=== PATIENT | female | born 1975 | race Caucasian/White ===

== ENCOUNTER 2017-08-16 11:10 | Emergency (ER) | payer MEDICARE, MEDICAID, SELFPAY ==
[2017-08-16] VITALS (8 sets, daily range): BP systolic 112–127; BP diastolic 72–80; PULSE 71–103; RESP 14–18; TEMP 36.6; O2SAT 97–98; BMI 31.6
[2017-08-16 11:47] LABS: Absolute Neutrophil Count 7.1 X10^3/uL (2.0-7.7); Basophil# 0.02 X10^3/uL; Basophil% 0.2 % (0-1); Eosinophil# 0.05 X10^3/uL; Eosinophils% 0.5 % (0-5); Hematocrit 33.8 % (37-47); Lymphocyte % 19.5 % (19-41); Mean Corp Hgb Conc 32.5 g/gl (32-36); Mean Corpuscular Hgb 27.2 pg (27.0-32.0); Mean Corpuscular Volume 83.5 fL (81-99); Mean Platelet Vol. 8.8 fl (6.2-12.0); Monocyte# 0.67 X10^3/uL; Monocyte% 6.9 % (0-10); Neutrophil # 7.07 X10^3/uL (2.7-7.7); Neutrophil % 72.7 % (47-70); Platelet Count 377 K/mm3 (150-450); RBC Distribution Width CV 14.7 % (11.6-14.6); RBC Distribution Width SD 45.3 fl (35.1-43.9); Red Blood Count 4.05 M/mm3 (4.2-5.4); White Blood Count 9.7 K/mm3 (4.4-11.0)
[2017-08-16 11:48] LABS: POSITIVE COUNT NO; POSITIVE DIFFERENTIAL NO; POSITIVE MORPHOLOGY NO
[2017-08-16 11:58] LABS: Anion Gap 8 (5-15); BUN 10 mg/dL (7-18); BUN/Creat Ratio 9.9 RATIO (10-20); Calcium,Total 8.4 mg/dL (8.5-10.1); Chloride 110 mmol/L (98-107); Creatinine, Serum 1.01 mg/dL (0.55-1.02); EST Glomerular Filtration Rate 64 mL/min (>60); Est Glom Filt Rate - Afr Amer 77 mL/min (>60); Estimated Creatinine Clearance 64.63 ml/min; Glucose 97 mg/dL (74-106); Potassium 3.7 mmol/L (3.5-5.1); Sodium Level 140 mmol/L (136-145)
[2017-08-16 12:11] LABS: Pregnancy, Serum, hCG Quali. NEGATIVE Negative (0-9 Nonpreg)
[2017-08-16 13:42] LABS: Amphetamine Urine VISTA NEGATIVE (<1000 ng/mL); Barbiturate Urine VISTA NEGATIVE (< 200 ng/mL); Benzodiazepine Urine VISTA NEGATIVE (< 200 ng/mL); Cocaine Urine VISTA NEGATIVE (< 300 ng/mL); Ecstacy Urine VISTA NEGATIVE (< 500 ng/mL); Methadone Urine VISTA NEGATIVE (< 300 ng/mL); PCP Urine VISTA NEGATIVE (< 25 ng/mL); THC Urine VISTA NEGATIVE (< 50 ng/mL); Vista UDS pH Range 6
--- NOTE | 2017-08-16 15:31 | NURSING ---
ISABELLE, CRISIS, HERE
--- NOTE | 2017-08-16 16:39 | ED.DCSUM_ITS ---
- ER Visit Summary Date of Service: 08/16/17 Chief Complaint: Homicidal ideation History of Present Illness: The patient is a 42 F who goes to the counseling center. She reports that approximately 2 weeks ago she had a breakdown and was admitted at [facility]. States that she was placed on in Trevizo and got a shot July 30. States that she does not feel that this is working as well as her prior medications and she is having command hallucinations. States that she feels very paranoid. Patient this morning left notes to both of her parents threatening to kill kilogram and then went to counseling center to see her counselor. States that she talked with the counselor briefly and when she came out the police were there and have brought her to the hospital. Physical Examination: Vitals: Stable. Afebrile. General: Well-nourished and well-developed. Head: Normocephalic atraumatic. Neck: Supple, no lymphadenopathy. No JVD. Nontender. Cardiovascular: Regular rate and rhythm. No murmurs. Respiratory: No respiratory distress. Clear to auscultation bilaterally. Abdominal: Soft, nontender, nondistended, normal bowel sounds. No guarding, rebound, or peritoneal signs. Back: Nontender. Extremities: Nontender, no edema. Skin: Normal color, no rash. Neurologic: Alert and oriented ?3. Cranial nerves II through XII are intact. Normal strength and sensation. Mental status exam: Patient appears their stated age. Good posture and grooming. Good eye contact. Normal rate, volume, and latency of speech. She denies homicidal ideation at this point. No visual hallucinations. Flow of thought is tangential. Insight and judgment is poor. Test Results: CBC is marked for an H&H 11.0 33.8, segment neutrophils of 73. Chem-7 is more for chloride 110 and calcium of 8.4. test is negative. Tox screen is normal. Alcohol level is normal. Emergency Department Course and Treatment: Patient rested comfortably throughout her stay in the emergency department. Treatment Plan: The homicidal notes that the patient had left her certainly very concerning she will need to be evaluated by the counseling center. At this time she will be turned over the care of the oncoming physician. Disposition: Pending Impression: 1. Auditory hallucinations. 2. Homicidal ideation. This note was generated with Dragon dictation software. It may contain incorrect words, spelling, and punctuation that were not noted in review of the chart prior to signing ED Disposition - Plan for ED Patient: Chief Complaint: Suicidal Referrals: Earl Tomlin DO [Primary Care Provider] -
--- NOTE | 2017-08-16 19:26 | NURSING ---
ACCEPTED TO [facility] AVELAR [phone] FOR REPORT
--- NOTE | 2017-08-16 20:25 | NURSING ---
HRO WENT TO THE COUNSELING CENTER TO MACHINE TECHNICIAN A CLOTHES BASKET OF CLOTHES IN THE BACK OF HER CAR. FOUND THE CLOTHES AND BROUGHT IT BACK TO THE ER FOR HER TO TAKE TO [facility].
== END 2017-08-16 20:40 ==
PROVIDERS: Emergency Provider Emergency Medicine; Family Provider Family Medicine; PCP Family Medicine
DX: R44.0 Auditory hallucinations (principal); R45.850 Homicidal ideations; F25.9 Schizoaffective disorder, unspecified
CPT/HCPCS: 36415; 80048; 80307; 80320; 84703; 85025; 99284; G0480

== ENCOUNTER → 2018-11-17 14:54 | Outpatient (CLI) | payer MEDICARE, SELFPAY ==
[2017-08-16 11:11] VITALS: BMI 31.6
--- NOTE | 2018-11-17 11:10 | PAPI_PTH ---
PATIENT: ANAND PHELPS LOC: [facility] U#:[id number] AGE/SX: 49/F ROOM: RE11/17/[address]: Dr. Frank Araujo MD : 1975 BED: DIS: SPEC #: [id number] RECD: 11/17/18 13:58 STATUS: DENICE ZULEIKA #: [id number] MARINA: 11/17/18 11:[address]: Frank Araujo DEPT: SURGICAL PATHOLOGY RECD BY: Jodi Erwin ENTERED: 11/17/18 15:23 SP TYPE: PAPILLOMA OTHR DR: Dr. Earl Tomlin, DO Tissues: Skin of eyelid, NOS Procedures: Surgery Specimen Level IV HEADER OPERATION: Excision RLL papilloma PRE-OP DIAGNOSIS: Increased grown last six months TISSUE SUBMITTED: RLL papilloma MICROSCOPIC DIAGNOSIS Right lower lid papilloma, biopsy: Squamous papilloma with seborrheic keratosis-like features, inflamed. AM:pipo 11/20/18 MICROSCOPIC DESCRIPTION Slides are reviewed. GROSS DESCRIPTION Received in fixative is one container labeled with the patient's name and designated RLL. The specimen consists of a piece of jiang-white skin measuring 0.5 x 0.3 x 0.2 cm. The specimen is totally submitted in one cassette. / BETO:pipo 11/17/18 TC:5 CPT: 15014
== END ==
PROVIDERS: Family Provider Family Medicine; PCP Family Medicine; Referring Provider Ophthalmology; Visit Provider Ophthalmology
DX: D23.112 Other benign neoplasm of skin of right lower eyelid, including canthus (principal); L82.0 Inflamed seborrheic keratosis
CPT/HCPCS: 88305

== ENCOUNTER 2021-07-20 08:21 | Emergency (ER) | payer MEDICARE, SELFPAY ==
[2021-07-20 08:23] VITALS: BP 135/89; PULSE 118; RESP 16; TEMP 36.4; O2SAT 94; BMI 36.6
[2021-07-20 08:54] LABS: Bacteria 0 SEEN /hpf (None Seen); Mucous, Urine 0 SEEN /hpf (<or=2+); Red Blood Cells-Urine 0 SEEN /hpf (0-5); White Blood Cells 0 SEEN /hpf (0-5)
[2021-07-20 08:58] LABS: Absolute Lymphocyte Count 2.11 X10^3/uL (0.83-4.51); Absolute Neutrophil Count 6.6 X10^3/uL (2.0-7.7); Basophil# 0.04 X10^3/uL; Basophil% 0.4 % (0-1); Eosinophil# 0.12 X10^3/uL; Eosinophils% 1.3 % (0-5); Hematocrit 40.5 % (37-47); Hemoglobin 13.6 g/dL (12.0-15.0); Lymphocyte # 2.11 X10^3/ul (0.83-4.51); Mean Corp Hgb Conc 33.6 g/dL (32-36); Mean Corpuscular Hgb 31.7 pg (27.0-32.0); Mean Corpuscular Volume 94.4 fL (81-99); Mean Platelet Vol. 8.9 fl (6.2-12.0); Monocyte# 0.57 X10^3/uL; Monocyte% 5.9 % (0-10); NRBC Flagged by Analyzer 0 % (0-5); Neutrophil # 6.64 X10^3/uL (2.7-7.7); Neutrophil % 69.4 % (47-70); Platelet Count 367 K/mm3 (150-450); RBC Distribution Width CV 12.2 % (11.6-14.6); RBC Distribution Width SD 42.4 fl (35.1-43.9); Red Blood Count 4.29 M/mm3 (4.2-5.4); White Blood Count 9.6 K/mm3 (4.4-11.0)
[2021-07-20 09:06] LABS: Color, Urine Yellow (Yellow); Glucose, Dipstick Normal (Normal); Ketone-Dipstick Negative (Negative); Leukocyte Esterase-Dipstick Negative /ul (Negative); Nitrite-Dipstick Negative (Negative); Occult Blood-Urine 250 /ul (Negative); Protein-Dipstick Negative (Negative); Urine Bilirubin Dipstick Negative (Negative); Urine Clarity Clear (Clear); Urine Urobilinogen Normal (Normal)
[2021-07-20 09:11] LABS: Anion Gap 9 (5-15); BUN 14 mg/dL (7-18); BUN/Creat Ratio 14.5 RATIO (10-20); Calcium,Total 8.8 mg/dL (8.5-10.1); Chloride 108 mmol/L (98-107); Creatinine, Serum 0.97 mg/dL (0.55-1.02); EST Glomerular Filtration Rate 66 mL/min (>60); Est Glom Filt Rate - Afr Amer 79 mL/min (>60); Estimated Creatinine Clearance 64.52 ml/min; Glucose 134 mg/dL (74-106); Potassium 3.7 mmol/L (3.5-5.1); Sodium Level 139 mmol/L (136-145)
[2021-07-20 09:15] LABS: Internal QC Validated? YES +Cl - CLEAR BKGD; Pregnancy, Serum, hCG Quali. NEGATIVE Negative
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
[2021-07-20 09:20] LABS: Amphetamine Urine VISTA NEGATIVE (<1000 ng/mL); Barbiturate Urine VISTA NEGATIVE (< 200 ng/mL); Benzodiazepine Urine VISTA NEGATIVE (< 200 ng/mL); Cocaine Urine VISTA NEGATIVE (< 300 ng/mL); Ecstacy Urine VISTA NEGATIVE (< 500 ng/mL); Methadone Urine VISTA NEGATIVE (< 300 ng/mL); PCP Urine VISTA NEGATIVE (< 25 ng/mL); THC Urine VISTA NEGATIVE (< 50 ng/mL); Vista UDS pH Range 6
[2021-07-20 09:26] LABS: Squamous Epithelial Cells - UA 0-5 SEEN /hpf (5-10)
[2021-07-20 10:27] VITALS: RESP 16
[2021-07-20 12:00] VITALS: RESP 16
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
--- NOTE | 2021-07-20 12:23 | CM.ED ---
ZEYAD Note: ZEYAD called [facility]. They are full and have no discharges today. ZEYAD called [facility]. They have beds. ZEYAD spoke to Shadia and said that this pattern chart writer is faxing over the referral. Plan: Inpatient psych [facility]
[2021-07-20 14:00] VITALS: BP 122/84; PULSE 97; RESP 18; O2SAT 98
--- NOTE | 2021-07-20 14:05 | CM.ED ---
Addendum entered by Jennifer Munguia 07/20/21 14:21: [facility] ROD[facility] placed a call to pt's mother Snow and updated her on discharge plans. Original Note: Social Work Note Pt has been accepted to [facility]. Accepting physician is Dr. Cherry. RN to RN [phone]. Pt will be assigned a unit when pt arrives to facility. Pt updated on acceptance to [facility]. Pt gave permission for her mother to be contacted and updated on discharge plans. eJnnifer Munguia HYDROCHLORIC MANUFACTURING SUPERVISOR, ASSISTANT SALES MANAGER
--- NOTE | 2021-07-20 14:38 | NURSING ---
report given to physician's ambulance for transport.
--- NOTE | 2021-07-20 14:51 | NURSING ---
report called to [facility] at this time by RICHARD Lara.
[2021-07-20 14:52] VITALS: BP 122/84; PULSE 97; RESP 18; O2SAT 98
== END 2021-07-20 14:54 ==
PROVIDERS: Emergency Provider Emergency Medicine; PCP Student in an Organized Health Care Education/Training Program; Visit Provider Emergency Medicine
DX: F20.0 Paranoid schizophrenia (principal); Z87.891 Personal history of nicotine dependence; Z91.14 Patient's other noncompliance with medication regimen
CPT/HCPCS: 36415; 80048; 80307; 81001; 82077; 84703; 85025; 87811; 99285

== ENCOUNTER 2023-06-02 08:30 | Emergency (ER) | payer MEDICARE, SELFPAY ==
[2023-06-02 08:30] VITALS: BP 129/78; PULSE 101; RESP 16; TEMP 36.6; O2SAT 96; BMI 31.2
--- NOTE | 2023-06-02 08:44 | EDS_ITS ---
HPI HPI - Psych History of Present Illness Chief Complaint: Mental Health Informant: patient Narrative Narrative: Patient presents secondary to worsening mental health. She has a history of what she believes is either schizophrenia or schizoaffective disorder. She is on Thorazine through the counseling center. Patient states that she hears voices all the time, however the voices are more persistent now and she is having difficulty focusing on other things. She is also had more problems sleeping and had to triple her dose of melatonin to help her get sleep at night. She denies recent illness, fever, cough, congestion. No recent changes to her medications. [facility] Medical History (Updated 06/02/23 @ 11:[address] Desire Leon MD) History of schizophrenia Home Medications paliperidone palmitate 156 mg/mL intramuscular syringe (Invega Sustenna) 156 mg IM Q30D 08/16/17 [History Last Taken Unknown] Allergy/AdvReac Type Severity Reaction Status Date / Time No Known Allergies Allergy Verified 06/02/23 08:32 Surgical History (Updated 06/02/23 @ 08:[address] Desire Leon MD) History of cholecystectomy Social History Smoking Status: Former smoker ROS ROS ED Constitutional Constitutional ED: Denies chills or fever(s) Eyes Eyes: Denies discharge from eye(s) ENT ENT ED: Denies discharge from eye(s), rhinorrhea or sore throat Cardiovascular Cardiovascular: Denies chest pain or palpitations Respiratory/Chest Respiratory/Chest: Denies cough or dyspnea Gastrointestinal Gastrointestinal: Denies abdominal pain, nausea or vomiting Genitourinary Genitourinary ED: Denies dysuria Musculoskeletal Musculoskeletal: Denies back pain or extremity pain Integumentary Denies Abrasions or rash Neurologic Neurologic: Denies headache(s) or weakness Psychiatric Psychiatric: Reports anxiety and other Details: Auditory hallucinations ; Denies suicidal ideation Allergic/Immunologic Allergic/Immunologic ED: Denies lip swelling or urticaria EXAM Physical Exam Const Vital Signs: 06/02/23 08:30 06/02/23 10:30 Temperature 97.9 F Temperature Source Temporal Pulse Rate 101 H 83 Respiratory Rate 16 16 Blood Pressure 129/78 H 110/71 Blood Pressure Mean 95 84 Pulse Ox 96 97 Oxygen Delivery Method Room Air Room Air Positive well nourished HEENT Reports moist mucous membranes Eyes EOMs intact bilaterally Resp normal respiratory effort and clear to auscultation bilaterally Cardio Rate: regular rate Rhythm: regular rhythm GI non-tender Palpation: soft Extremity normal to inspection Neuro oriented x3 and no sensory deficits noted Motor Exam: strength 5/5 throughout Psych mental status grossly normal and cooperative Appearance: well kempt Attitude: calm Speech: normal speech Mood & Affect: flat affect Skin Lesions: no lesions Rashes: no rashes MDM MDM MDM Narrative Medical decision making narrative: Labwork for psychiatric clearance will be undertaken. We will have staff from [facility] evaluate the patient. History & Record Review Discussion w/independent historian: Patient Lab Data Attestation: I reviewed the patient's lab results. Labs: Laboratory Results - last 24 hr 06/02/23 06/02/23 08:55 09:45 WBC 9.5 RBC 4.12 L Hgb 13.1 Hct 38.2 MCV 92.7 MCH 31.8 MCHC 34.3 RDW Std Deviation 40.8 RDW Coeff of Herminio 11.9 Plt Count 331 MPV 9.6 Immature Gran % (Auto) 0.500 Neut % (Auto) 66.5 Lymph % (Auto) 26.2 Reagan % (Auto) 5.7 Eos % (Auto) 0.6 Baso % (Auto) 0.5 Absolute Neuts (auto) 6.3 Absolute Lymphs (auto) 2.48 Nucleated RBC % 0 Sodium 139 Potassium 3.4 L Chloride 108 H Carbon Dioxide 23.0 Anion Gap 8 BUN 16 Creatinine 0.70 Estim Creat Clear Calc 104.73 Est GFR (MDRD) Af Amer 115 Est GFR (MDRD) Non-Af 95 BUN/Creatinine Ratio 23.0 H Glucose 96 Calcium 8.6 Serum , Qual NEGATIVE Urine Opiates Screen NEGATIVE Urine Methadone Screen NEGATIVE Ur Barbiturates Screen NEGATIVE Ur Phencyclidine Scrn NEGATIVE Ur Amphetamines Screen NEGATIVE MDMA (Ecstasy) Screen NEGATIVE U Benzodiazepines Scrn NEGATIVE Urine Cocaine Screen NEGATIVE U Cannabinoids Screen NEGATIVE Ur Drug Screen Comment Ethyl Alcohol < 3.0 Treatment and Re-Evaluation Narrative: CBC was normal white count 9.5 with a hemoglobin of 13.1. Chemistry studies reveal only slightly low potassium at 3.4. test is negative. EtOH and urine tox screens are negative. Patient seen by crisis. They do feel patient is appropriate for safety plan. Patient will reach out to them and they will also update Dr. Guerrero, whom she has followed with for years. Return instructions were provided. Discharge Plan Triage Chief Complaint: Mental Health ED Provider: Desire Leon Dx/Rx/DC Orders Clinical Impression: Auditory hallucination Instructions: ED Schizophrenia, General Prescriptions: No Action Invega Sustenna 156 MG/ML syringe 156 mg IM Q30D Primary Care Provider: Care Physician,No Primary Referrals: Counseling,Center [Group of Physicians] - As soon as possible Hu Duff DO [Non-Staff] - Disposition Disposition: Home, Self Care
[2023-06-02 09:07] LABS: Absolute Lymphocyte Count 2.48 X10^3/uL (0.83-4.51); Absolute Neutrophil Count 6.3 X10^3/uL (2.0-7.7); Basophil# 0.05 X10^3/uL; Basophil% 0.5 % (0-1); Eosinophil# 0.06 X10^3/uL; Eosinophils% 0.6 % (0-5); Hematocrit 38.2 % (37-47); Hemoglobin 13.1 g/dL (12.0-15.0); Lymphocyte # 2.48 X10^3/ul (0.83-4.51); Lymphocyte % 26.2 % (19-41); Mean Corp Hgb Conc 34.3 g/dL (32-36); Mean Corpuscular Hgb 31.8 pg (27.0-32.0); Mean Corpuscular Volume 92.7 fL (81-99); Mean Platelet Vol. 9.6 fl (6.2-12.0); Monocyte# 0.54 X10^3/uL; Monocyte% 5.7 % (0-10); NRBC Flagged by Analyzer 0 % (0-5); Neutrophil # 6.27 X10^3/uL (2.7-7.7); Neutrophil % 66.5 % (47-70); Platelet Count 331 K/mm3 (150-450); RBC Distribution Width CV 11.9 % (11.6-14.6); RBC Distribution Width SD 40.8 fl (35.1-43.9); Red Blood Count 4.12 M/mm3 (4.2-5.4); White Blood Count 9.5 K/mm3 (4.4-11.0)
[2023-06-02 09:15] LABS: Internal QC Validated? YES +Cl - CLEAR BKGD; Pregnancy, Serum, hCG Quali. NEGATIVE Negative
[2023-06-02 09:19] LABS: Alcohol, Blood (Medical)-Serum < 3.0 mg/dL
[2023-06-02 09:20] LABS: Anion Gap 8 (5-15); BUN 16 mg/dL (7-18); Calcium,Total 8.6 mg/dL (8.5-10.1); Chloride 108 mmol/L (98-107); EST Glomerular Filtration Rate 95 mL/min (>60); Est Glom Filt Rate - Afr Amer 115 mL/min (>60); Estimated Creatinine Clearance 104.73 ml/min; Glucose 96 mg/dL (74-106); Potassium 3.4 mmol/L (3.5-5.1); Sodium Level 139 mmol/L (136-145)
--- NOTE | 2023-06-02 09:58 | ED.RN ---
CRISIS CALLED TO EVALUATE PT, SPOKE WITH CRISPIN. SHE STATED SOMEONE WOULD BE OVER SOON POSSIBLE.
[2023-06-02 10:17] LABS: Amphetamine Urine VISTA NEGATIVE (<1000 ng/mL); Barbiturate Urine VISTA NEGATIVE (< 200 ng/mL); Benzodiazepine Urine VISTA NEGATIVE (< 200 ng/mL); Cocaine Urine VISTA NEGATIVE (< 300 ng/mL); Ecstacy Urine VISTA NEGATIVE (< 500 ng/mL); Methadone Urine VISTA NEGATIVE (< 300 ng/mL); PCP Urine VISTA NEGATIVE (< 25 ng/mL); THC Urine VISTA NEGATIVE (< 50 ng/mL); Vista UDS pH Range 5
[2023-06-02 10:30] VITALS: BP 110/71; PULSE 83; RESP 16; O2SAT 97
[2023-06-02 12:00] VITALS: BP 112/76; PULSE 81; RESP 14; O2SAT 97
[2023-06-02 12:02] VITALS: BP 112/76; PULSE 81; RESP 14; TEMP 36.3; O2SAT 97
== END 2023-06-02 12:03 | disposition home or self-care (01) ==
PROVIDERS: Emergency Provider Emergency Medicine; Visit Provider Emergency Medicine
DX: R44.0 Auditory hallucinations (principal); Z87.891 Personal history of nicotine dependence; Z79.899 Other long term (current) drug therapy
CPT/HCPCS: 80048; 80307; 80320; 84703; 85025; 99284; G0480